=== PATIENT | female | born 1990 | race Caucasian/White ===

== ENCOUNTER 2021-05-01 08:32 | Emergency (ER) | payer OTHER ==
[~2021-05-01] VITALS: Ht 175.3 cm; Wt 97.4 kg
[2021-05-01] MEDS ORDERED: LISI10TA22 PO (08:44)
[2021-05-01] MEDS ORDERED: ATOR1TAB21 PO (08:44)
[2021-05-01] MEDS ORDERED: NS 1,000 ML IV ONE (09:10)
[2021-05-01 10:28] LABS: BASO % 0.6 % (0.0-1.0); EOS # 0.2 10^3/uL (0.0-0.5); EOS % 3.4 % (0.0-3.0); HEMATOCRIT 42.8 % (36.0-47.0); HEMOGLOBIN 14.9 g/dl (12.0-15.5); LYMPH # 2.1 10^3/uL (1.5-5.0); MEAN CORPUSCULAR HGB CONC 34.8 g/dl (32.0-36.5); MONO # 0.7 10^3/uL (0.0-0.8); MONO % 9.1 % (2.0-8.0); NEUTROPHILS # 4.1 10^3/uL (1.5-8.5); NEUTROPHILS % 57.5 % (36.0-66.0); PLATELET COUNT, AUTOMATED 324 10^3/uL (150-450); RED BLOOD COUNT 4.81 10^6/uL (4.00-5.40); WHITE BLOOD COUNT 7.1 10^3/uL (4.0-10.0)
[2021-05-01 10:52] LABS: BLOOD UREA NITROGEN 15 MG/DL (7-18); CALCIUM LEVEL 8.8 MG/DL (8.5-10.1); CARBON DIOXIDE LEVEL 26 MEQ/L (21-32); CHLORIDE LEVEL 110 MEQ/L (98-107); CREATININE FOR GFR 0.98 MG/DL (0.55-1.30); GLOMERULAR FILTRATION RATE > 60.0 (>60); GLUCOSE, FASTING 93 MG/DL (70-100); POTASSIUM SERUM 4.3 MEQ/L (3.5-5.1); SODIUM LEVEL 141 MEQ/L (136-145)
[2021-05-01] MEDS ORDERED: ANUS25SU PR (11:28)
[2021-05-01 11:33] VITALS: BP 138/80
== END 2021-05-01 12:00 | disposition home or self-care (01) ==
LOC: EDSEX → M ED 08:32
DX: K92.2 Gastrointestinal hemorrhage, unspecified (principal); I10 Essential (primary) hypertension; E78.5 Hyperlipidemia, unspecified; Z79.899 Other long term (current) drug therapy

== ENCOUNTER 2021-07-17 10:10 | Day surgery (SDC) | payer OTHER ==
[~2021-07-17] VITALS: Ht 180.3 cm; Wt 94.3 kg
[~2021-07-17 10:10] MED LIST: ANUS25SU PR; ATOR1TAB21 PO; LISI10TA22 PO; NS 1,000 ML IV ONE
--- NOTE | 2021-07-17 11:29 | ROOR ---
Patient Name: Efren Jimenez Procedure Date: 07/17/2021 11:09 AM Date of : 1990 Age: 30 Room: [facility] Gender: Male Note Status: Finalized Procedure: Total Colonoscopy to Cecum Indications: Rectal bleeding Providers: Seth Carreon MD Referring MD: SERJIO ELLIOTT MD Requesting Provider: Medicines: Monitored Anesthesia Care Complications: No immediate complications. Procedure: Pre-Anesthesia Assessment: - The heart rate, respiratory rate, oxygen saturations, blood pressure, adequacy of pulmonary ventilation, and response to care were monitored throughout the procedure. The Colonoscope was introduced through the anus and advanced to the cecum, identified by appendiceal orifice and ileocecal valve. The colonoscopy was performed without difficulty. The patient tolerated the procedure well. The quality of the bowel preparation was excellent. Findings: The perianal and digital rectal examinations were normal. Non-bleeding internal hemorrhoids were found during retroflexion. The hemorrhoids were small and Grade I (internal hemorrhoids that do not prolapse). No other significant abnormalities were identified in a careful examination of the remainder of the colon. The exam was otherwise without abnormality on direct and retroflexion views. Impression: - Non-bleeding internal hemorrhoids. - The examination was otherwise normal on direct and retroflexion views. - No specimens collected. - The exam was otherwise normal to the cecum. Recommendation: - Patient has a contact number available for emergencies. The signs and symptoms of potential delayed complications were discussed with the patient. Return to normal activities tomorrow. Written discharge instructions were provided to the patient. - High fiber diet. - Discharge patient to home. - Continue present medications. - Repeat colonoscopy at age 50 for screening purposes. - Return to referring physician. - The findings and recommendations were discussed with the patient. Procedure Code(s): --- Professional --- 22641, Colonoscopy, flexible; diagnostic, including collection of specimen(s) by brushing or washing, when performed (separate procedure) Diagnosis Code(s): --- Professional --- K64.0, First degree hemorrhoids K62.5, Hemorrhage of anus and rectum CPT copyright 2019 [employer]. All rights reserved. The codes documented in this report are preliminary and upon perinatal tech review may be revised to meet current compliance requirements. Seth Carreon MD Seth Carreon MD 07/17/2021 11:28:48 AM Electronically signed by Seth Carreon MD Number of Addenda: 0 Note Initiated On: 07/17/2021 11:09 AM Estimated Blood Loss: Estimated blood loss: none.
[2021-07-17 11:47] VITALS: BP 120/71
[2021-07-17] MEDS ORDERED: propofoL 200 MG/20 ML VIAL As Ordered ONE (11:52)
== END 2021-07-17 11:49 | disposition home or self-care (01) ==
LOC: M OPP 10:10 → EDSEX 11:45 → M OPP 11:49
PROVIDERS: ATTEND Internal Medicine Gastroenterology
DX: K74.60 Unspecified cirrhosis of liver (principal); K64.0 First degree hemorrhoids; K62.5 Hemorrhage of anus and rectum; Z79.899 Other long term (current) drug therapy